=== PATIENT | male | born 1960 | race Caucasian/White ===

== ENCOUNTER 2020-01-20 22:54 | Observation (INO) | payer MEDICAID, SELFPAY ==
--- NOTE | ~2020-01-20 | XR_ITS ---
EXAMINATION: XR chest 1V portable 01/21/2020 00:01 INDICATION: Cough, shortness of breath and history of COPD PROCEDURE: AP portable chest COMPARISON: Comparison to multiple prior studies sequentially, with oldest reviewed study dated 01/10. FINDINGS: The lungs are clear. The cardiomediastinal silhouette is within normal limits. There are no pleural effusions. There is no pneumothorax suspected. The lungs are hyperinflated which is cons istent with, but not diagnostic of chronic obstructive pulmonary disease. IMPRESSION: 1: NO ACUTE CARDIOPULMONARY DISEASE. Reviewed, dictated and finalized at location A.
[2020-01-20 22:56] VITALS: BP 214/92; PULSE 112; RESP 23; TEMP 36.6; O2SAT 91
--- NOTE | 2020-01-20 23:00 | ECG_ITS ---
Measurements Intervals [place] Rate: 110 P: 84 AL: 150 QRS: 66 QRSD: 91 T: 66 QT: 328 QTc: 445 Interpretive Statements SINUS TACHYCARDIA VENTRICULAR PREMATURE COMPLEX INCOMPLETE RIGHT BUNDLE BRANCH BLOCK ABNORMAL ECG Electronically Signed On 01-21-2020 8:53:13 CDT by Shiv Cain D.O.
--- NOTE | 2020-01-20 23:05 | ED.SOB ---
HPI - SOB/Dyspnea General Chief Complaint: Shortness of Breath/Dyspnea Stated Complaint: SOB Time Seen by Provider: 01/20/20 23:00 Source: RN notes reviewed History of Present Illness HPI Narrative: Patient presents emergency department from home via EMS for shortness of breath. Patient states symptoms been ongoing for the past 5 days and worse over the past 3 days. States that is been associated with a cough is been productive of yellow phlegm. Patient states he has a history of COPD and currently smokes cigarettes. He denies any fevers or chills chest pain abdominal pain nausea vomiting or any other symptoms. Related Data Home Medications Medication Instructions Recorded Confirmed cyclobenzaprine 10 mg tablet 10 mg PO TID 07/28/19 ibuprofen 800 mg tablet 800 mg PO TID 07/28/19 omeprazole 40 mg capsule,delayed 40 mg PO DAILY 07/28/19 release umeclidinium 62.5 mcg-vilanterol 1 inhalation INHALATION DAILY 07/28/19 25 mcg/actuation powdr for inhalation Allergies Allergy/AdvReac Type Severity Reaction Status Date / Time No Known Allergies Allergy Unknown Verified 01/20/20 23:02 Review of Systems Review of Systems: Narrative: Gen.: Denies fevers or chills Eyes: Denies eye pain or visual change ENT: Denies congestion Respiratory: See HPI CV: Denies chest pain or palpitations GI: Denies abdominal pain nausea, emesis or diarrhea Musculoskeletal: Denies back pain or muscle pain Neuro: Denies numbness, tingling, weakness or focal weakness Skin: Denies rash Except as documented, all other systems reviewed and negative [facility], [facility] Past Medical History Medical History Alcohol abuse COPD (chronic obstructive pulmonary disease) Essential hypertension Social History Social History (Updated 01/20/20 @ 23:19 by Guanakito Hernandez DO) Gender identity (if verbalized by the patient): Male Exam Narrative: Exam Narrative: APPEARANCE: No acute distress, nontoxic, resting in bed EYES: EOMI HEENT: Normocephalic, atraumatic, OMM RESPIRATORY: Mild respiratory distress, wheezing throughout the bilateral lung gonzalez, no rhonchi or rales CARDIOVASCULAR: Regular rate and rhythm without murmurs rubs or gallops. ABDOMINAL: Soft, nontender, nondistended, no rebound or guarding MUSCULOSKELETAl: Moves all extremities. No clubbing, cyanosis or edema. NEURO: Awake and alert. Following commands, speech normal, no focal deficits SKIN:: Warm, dry. No rashes lesions or abrasions PSYCHIATRIC: Normal affect/mood, Course Course Emergency Course: Discussed with Dr. Palma presentation work-up. Agrees with admission at this time Discussed with patient and family results of workup and diagnosis. Discussed need for admission. Patient and family understand and agree to current treatment plan Vital Signs Vital signs: Vital Signs Temperature 97.9 F 01/20/20 22:56 Pulse Rate 112 H 01/20/20 22:56 Respiratory Rate 23 H 01/20/20 22:56 Blood Pressure 214/92 H 01/20/20 22:56 Pulse Oximetry 91 01/20/20 22:56 Temperature 97.9 F 01/20/20 22:56 Pulse Rate 107 H 01/21/20 00:06 Respiratory Rate 25 H 01/21/20 00:06 Blood Pressure 130/79 01/21/20 00:06 Pulse Oximetry 89 L 01/21/20 00:06 MDM - SOB/Dyspnea Lab Data Result diagrams: 01/20/20 23:27 01/20/20 23:27 Labs: Lab Results 01/20/20 01/20/20 01/20/20 Range/Units 23:27 23:27 23:27 WBC 9.0 (4.5-10.0) K/mm3 RBC 4.13 L (4.6-6.20) M/mm3 Hgb 13.7 L (14.0-18.0) g/dL Hct 40.2 L (42.0-52.0) % MCV 97.3 (80-100) fl MCH 33.2 (26-34) pg MCHC 34.1 (32-36) g/dl RDW 12.2 (11.5-14.5) % Plt Count 266 (150-375) k/mm3 MPV 9.0 (7.4-10.4) fl Immature Gran % (Auto) 0.2 (0-0.5) % Neut % (Auto) 56.6 (45.5-73.1) % Lymph % (Auto) 31.7 (18.3-44.2) % Stephens % (Auto) 6.0 (2.6-8.5) % Eos % (Auto) 5.2 H (0-4.4) % Baso % (
--- NOTE | 2020-01-20 23:07 | PC.NURSE ---
pt refusing to wear a mask at this time.
[2020-01-20 23:24] LABS: Alveolar/Arterial O2 Gradient 36.5 mmHg; Base Excess ABG -3.9 mEq/l (+/-2.0); Fractional Inspired Oxygen 21 %; HCO3 ABG 20.8 mEq/l (22.0-26.0); Oxygen Content ABG 18.1 %vol (16.0-22.0); Oxygen Saturation ABG 93.5 % (95.0-100.0); Oxyhemoglobin 89.3 % THb (90.0-100.0); PCO2 ABG 36.9 mmHg (35.0-45.0); PO2 FiO2 Ratio Arterial Blood 3.29 %; Total Hemoglobin 14.4 g/dL (12.0-18.0); pH ABG 7.369 (7.350-7.450)
[2020-01-20 23:26] LABS: Device ROOM AIR; Modified Allen's Test Pass; Site Drawn LEFT RADIAL
[2020-01-20] MEDS: ALBUTEROL SULFATE NEB 2.5 MG/0.5 ML INH 5 MG INHALATION (23:30)
[2020-01-20] MEDS: IPRATROPIUM BR 0.02% INH SOLN 0.5 MG/2.5 ML VIAL INHALATION (23:30)
[2020-01-20 23:34] LABS: Basophils Percent Auto 0.3 % (0.2-1.2); Eosinophils Absolute Auto 0.5 K/mm3 (0-0.3); Eosinophils Percent Auto 5.2 % (0-4.4); Hematocrit 40.2 % (42.0-52.0); Hemoglobin 13.7 g/dL (14.0-18.0); Immature Granulocyte Absolute 0.02 K/mm3 (0.00-0.031); Immature Granulocyte Percent A 0.2 % (0-0.5); Lymphocytes Absolute Auto 2.87 K/mm3 (0.9-3.2); Lymphocytes Percent Auto 31.7 % (18.3-44.2); Mean Corpuscular HGB Conc 34.1 g/dl (32-36); Mean Corpuscular Hemoglobin 33.2 pg (26-34); Mean Corpuscular Volume 97.3 fl (80-100); Monocytes Absolute Auto 0.5 K/mm3 (0.1-0.6); Neutrophils Absolute Auto 5.1 K/mm3 (1.3-6.7); Neutrophils Percent Auto 56.6 % (45.5-73.1); Platelet Count Result 266 k/mm3 (150-375); Red Blood Count 4.13 M/mm3 (4.6-6.20); Red Cell Distribution Width 12.2 % (11.5-14.5)
[2020-01-20] MEDS: THIAMINE HCL 200 MG/2 ML VIAL 100 MG IV PUSH (23:34)
[2020-01-20] MEDS: methylPREDNISolone SOD SUCC 125 MG VIAL IV PUSH (23:34)
[2020-01-20 23:36] VITALS: PULSE 105; RESP 24
[2020-01-20 23:42] VITALS: PULSE 107; RESP 18
[2020-01-20 23:44] LABS: INR 0.9; Partial Thromboplastin Time 26.8 SECONDS (22.3-36.8); Prothrombin Time 11.5 Seconds (11.1-14.7)
[2020-01-20 23:45] LABS: Lactic Acid Reflex 2.8 mmol/L (0.7-2.1)
[2020-01-20 23:46] LABS: Ethanol 38 mg/dL (<10)
[2020-01-20 23:47] LABS: Alanine Aminotransferase 20 U/L (4-50); Albumin Level 4.6 g/dL (3.5-5.1); Alkaline Phosphatase 73 U/L (38-126); Aspartate Amino Transferase 35 U/L (17-59); Bilirubin,Total 0.4 mg/dL (0.2-1.3); Blood Urea Nitrogen 8 mg/dL (9-20); Calcium 8.8 mg/dL (8.4-10.2); Carbon Dioxide 25 mmol/L (22-30); Chloride 98 mmol/L (98-107); Estimated CRCL calculation 114 ml/min; Estimated Glomerular Filt Rate > 60; Glucose 192 mg/dL (75-110); Potassium 3.8 mmol/L (3.4-5.0); Sodium 133 mmol/L (137-145)
[2020-01-20 23:59] LABS: NT Pro B Type Natriuretic Pept 26 PG/ML (5-100); Troponin I < 0.012 ng/mL (0.000-0.034)
[2020-01-21] VITALS (25 sets, daily range): BP systolic 102–151; BP diastolic 55–89; PULSE 84–131; RESP 16–94; TEMP 36.6–37.2; O2SAT 89–98; BMI 23.9
[2020-01-21] MEDS: SODIUM CHLORIDE 0.9% IV 1,000 ML 999 ML IV CONT (00:04)
--- NOTE | 2020-01-21 00:09 | PC.NURSE ---
pt placed on 2L of o2 at this time due to o2 sats in the high 80's
--- NOTE | 2020-01-21 02:18 | ADMGEN ---
This patient, Lewis An, was admitted to [facility] Surg Room 325-01 at 0210. Patient/family oriented to hospital policies and general routines including ID bracelet, bed and alarms, visiting hours, pain management, procedures, bathroom and other care routines, personal items, smoking policy, room service/diet, and visiting hours. Valuables list has been completed. Information on how to activate the Rapid Response Team has been discussed. Patient/Family are encouraged to report perceived risks to care and to ask questions if they do not understand what they are told or what they should do.
[2020-01-21 02:31] LABS: Reflex Lactic Acid Yes or No Add Lactic
[2020-01-21] MEDS: ALBUTEROL SULFATE NEB 2.5 MG/0.5 ML INH 5 MG INHALATION ×4 (02:47→21:22)
[2020-01-21] MEDS: IPRATROPIUM BR 0.02% INH SOLN 0.5 MG/2.5 ML VIAL INHALATION ×4 (02:48→21:21)
[2020-01-21 03:03] LABS: Lactic Acid 2.1 mmol/L (0.7-2.1)
[2020-01-21] MEDS: methylPREDNISolone SOD SUCC 125 MG VIAL 60 MG IV PUSH (07:37)
[2020-01-21 10:35] LABS: D Dimer 0.31 ug/mL (<0.48)
[2020-01-21 10:36] LABS: CRP 0.5 mg/dL (<1.0); Lactate Dehydrogenase 353 U/L (313-618)
[2020-01-21] MEDS: ASPIRIN 325 MG TABLET PO (10:44)
[2020-01-21] MEDS: FOLIC ACID 1 MG TABLET PO (10:44)
[2020-01-21] MEDS: THIAMINE HCL 100 MG TABLET PO (10:44)
[2020-01-21] MEDS: PANTOPRAZOLE SOD SESQUIHYDRATE 20 MG TAB PO (10:45)
[2020-01-21] MEDS: lisinopriL 20 MG TABLET PO (10:45)
[2020-01-21] MEDS: ENOXAPARIN 40 MG/0.4 ML SYRINGE SUB-Q (10:45)
--- NOTE | 2020-01-21 12:01 | PM.IMHP ---
H&P: HPI History of Present Illness Chief complaint: AE COPD Narrative: Lewis An is a 59 year old male who suffers from alcohol abuse who presented emergency room for shortness of breath. He says he has a baseline shortness of breath and has been diagnosed with emphysema but 3 days ago he said it gradually started getting worse. In the last year, he has had to sleep in the recliner because he gets thick secretions and the recliner helps. In the last week his secretions seem to be worsening and he is coughing up more phlegm. He said he could not sleep last night because it had gotten so bad so he came into the emergency room. He has not had any sick contacts and does not like to go anywhere so does not think he has got COVID-19. He admits to having some dyspnea on exertion but denies fevers, chills, leg swelling, or chest pain. He has never had a blood clot. He does have some reproducible muscular pain across his chest when he coughs but overall doing okay. He said he feels much better with the oxygen and steroids. He is very anxious and would love a cigarette. He also mentions that he drinks a little bit more than a 5th of vodka a day. He thinks he has had a alcohol withdrawal seizure in the past. He is adamant about not utilizing the seizure pads and understands the risk. He has not had any withdrawal symptoms such as tremors or hallucinations. He denies nausea, vomiting, diarrhea or constipation. Review of Systems Review of Systems: All systems reviewed & are unremarkable except as noted in HPI and below PMFSH Past Medical History Medical History (Updated 01/21/20 @ 12:09 by Mariel Zavala PA-C) Alcohol abuse COPD (chronic obstructive pulmonary disease) Essential hypertension Hypertension Surgical History Surgical History (Updated 01/21/20 @ 12:08 by Mariel Zavala PA-C) History of carpal tunnel surgery Family History Family History (Updated 01/21/20 @ 02:36 by Lyndsey Martin RN) Mother Brain aneurysm Sibling Hypertension Social History Social History (Updated 01/21/20 @ 12:09 by Mariel Zavala PA-C) Social History: Patient smokes 7 cigarettes a day but prior to that he smoked many packs a day. He drinks a little over 5th of vodka a day. He does not do drugs or marijuana. He would like to be a DNR. He states that he does not want a surrogate decision maker as he does not trust his or kids. Smoking status: Current every day smoker Tobacco type: cigarettes Second hand tobacco smoke exposure: Yes Alcohol intake: current Drinks per week: 100 Substance use: never Gender identity (if verbalized by the patient): Male Spiritual care concerns: No Meds Home Medications and Allergies Home Medications Medication Instructions Recorded Confirmed Type albuterol sulfate 90 mcg/actuation 1 puff INHALATION Q4H PRN #8 gm 07/28/19 01/21/20 Rx aerosol inhaler lisinopril 20 mg tablet 20 mg PO DAILY #90 tablet 07/28/19 01/21/20 Rx aspirin 325 mg PO DAILY 01/21/20 01/21/20 History naproxen sodium [Aleve] 220 mg PO Q12H 01/21/20 01/21/20 History Allergies Allergy/AdvReac Type Severity Reaction Status Date / Time No Known Allergies Allergy Unknown Verified 01/20/20 23:02 Vital Signs Vital Signs - 24 hr 01/20/20 22:56 01/20/20 23:36 01/20/20 23:42 Temperature 97.9 F Pulse Rate 112 H 105 H 107 H Pulse Rate [Right Radial Palpation] Respiratory Rate 23 H 24 H 18 Blood Pressure 214/92 H Pulse Oximetry 91 01/21/20 00:06 01/21/20 00:30 01/21/20 01:00 Temperature Pulse Rate 107 H 119 H 119 H Pulse Rate [Right Radial Palpation] Respiratory Rate 25 H 24 H 94 H Blood Pressure 130/79 144/79 H 142/89 H Pulse Oximetry 89 L 95 94 01/21/20 01:46 01/21/20 02:02 01/21/20 02:15 Temperature 98.9 F 98.1 F Pulse Rate 103 H 99 118 H Pulse Rate [Right Radial Palpation] Respiratory Rate 21 H 20 22 H Blood Pressure 105/55 L 102/67 151/81 H Pulse
[2020-01-21 12:44] LABS: Magnesium 1.9 mg/dL (1.6-2.3)
[2020-01-21] MEDS: CHLORDIAZEPOXIDE 25 MG CAPSULE PO ×2 (13:40→21:33)
[2020-01-21] MEDS: NICOTINE (*PBKC) 21 MG PATCH 1 PATCH TRANSDERM (13:40)
--- NOTE | 2020-01-21 14:47 | PC.NURSE ---
Patient refused seizure precaution padding. Patient was educated by both the nurse and attending provider on the risk of having seizures.
[2020-01-21] MEDS: methylPREDNISolone SOD SUCC 40 MG VIAL IV PUSH (21:33)
[2020-01-22] VITALS (8 sets, daily range): BP systolic 115–121; BP diastolic 66–74; PULSE 90–126; RESP 18–20; TEMP 36.2; O2SAT 92–96
[2020-01-22] MEDS: ALBUTEROL SULFATE NEB 2.5 MG/0.5 ML INH 5 MG INHALATION ×2 (03:14→09:03)
[2020-01-22] MEDS: IPRATROPIUM BR 0.02% INH SOLN 0.5 MG/2.5 ML VIAL INHALATION ×2 (03:14→09:02)
[2020-01-22 06:20] LABS: Basophils Percent Auto 0.1 % (0.2-1.2); Hematocrit 37.8 % (42.0-52.0); Hemoglobin 12.9 g/dL (14.0-18.0); Immature Granulocyte Absolute 0.09 K/mm3 (0.00-0.031); Immature Granulocyte Percent A 0.7 % (0-0.5); Lymphocytes Absolute Auto 1.22 K/mm3 (0.9-3.2); Lymphocytes Percent Auto 9.3 % (18.3-44.2); Mean Corpuscular HGB Conc 34.1 g/dl (32-36); Mean Corpuscular Hemoglobin 33.2 pg (26-34); Mean Corpuscular Volume 97.4 fl (80-100); Mean Platelet Volume 9.3 fl (7.4-10.4); Monocytes Absolute Auto 0.8 K/mm3 (0.1-0.6); Neutrophils Percent Auto 83.9 % (45.5-73.1); Platelet Count Result 274 k/mm3 (150-375); Red Blood Count 3.88 M/mm3 (4.6-6.20); Red Cell Distribution Width 12.5 % (11.5-14.5); White Blood Count 13.1 K/mm3 (4.5-10.0)
[2020-01-22 06:33] LABS: Hemoglobin A1C 5.2 % (<5.7)
[2020-01-22 06:48] LABS: Blood Urea Nitrogen 11 mg/dL (9-20); Calcium 8.7 mg/dL (8.4-10.2); Carbon Dioxide 26 mmol/L (22-30); Chloride 103 mmol/L (98-107); Estimated CRCL calculation 134 ml/min; Estimated Glomerular Filt Rate > 60; Glucose 144 mg/dL (75-110); Potassium 4.7 mmol/L (3.4-5.0); Sodium 135 mmol/L (137-145)
[2020-01-22 07:50] LABS: Folic Acid 6.7 ng/mL (2.76->20)
[2020-01-22] MEDS: ASPIRIN 325 MG TABLET PO (08:33)
[2020-01-22] MEDS: lisinopriL 20 MG TABLET PO (08:33)
[2020-01-22] MEDS: ENOXAPARIN 40 MG/0.4 ML SYRINGE SUB-Q (08:33)
[2020-01-22] MEDS: THIAMINE HCL 100 MG TABLET PO (08:33)
[2020-01-22] MEDS: FOLIC ACID 1 MG TABLET PO (08:33)
[2020-01-22] MEDS: PANTOPRAZOLE SOD SESQUIHYDRATE 20 MG TAB PO (08:34)
[2020-01-22] MEDS: methylPREDNISolone SOD SUCC 40 MG VIAL IV PUSH (08:34)
[2020-01-22] MEDS: NICOTINE (*PBKC) 21 MG PATCH 1 PATCH TRANSDERM (08:34)
--- NOTE | 2020-01-22 10:09 | PM.DS ---
DS: Admitting Diagnosis Admitting Diagnosis Admitting Diagnosis: Chronic obstructive pulmonary disease with (acute) exacerbation DS: Discharge Diagnosis Discharge Diagnosis (1) Acute exacerbation of chronic obstructive airways disease: Code(s): J44.1 - Chronic obstructive pulmonary disease with (acute) exacerbation Status: Acute Assessment and Plan: -----the patient is currently undergoing a COPD exacerbation and has felt improvement with the steroids and has been weaned off o2. Chest x-ray does not show any infection nor does he have a leukocytosis or fever. COVID-19 seems less likely as the D-dimer, ferritin, LDH and CRP is normal. Plan to wean steroids outpt. PE seems less likely since d-dimer negative and wells score 1.5. Tachycardia likely d/t ETOH withdraw It was explained that he needs to quit smoking in order to stop the progression of COPD which he states is not going to happen . (2) Acute respiratory failure with hypoxia: Code(s): J96.01 - Acute respiratory failure with hypoxia Status: Acute Assessment and Plan: -----as stated above. Pt off o2 at discharge. (3) Hypertension: Code(s): I10 - Essential (primary) hypertension Status: Acute Assessment and Plan: -----last blood pressure 115/74. Continue lisinopril. (4) Hyperglycemia: Code(s): R73.9 - Hyperglycemia, unspecified Status: Acute Assessment and Plan: -----glucose elevated this morning without the diagnosis of diabetes. A1c normal. (5) Alcohol abuse: Code(s): F10.10 - Alcohol abuse, uncomplicated Status: Acute Assessment and Plan: -----the patient drinks quite a bit of alcohol daily and his last drink was the day prior to admission. He has also had a seizure in the past. Pt was discharged on the medications below and instructed to wean off alcohol. Pt had no plans to quit drinking alcohol. (6) Tobacco abuse counseling: Code(s): Z71.6 - Tobacco abuse counseling Status: Acute Assessment and Plan: -----we have discussed chantix, Wellbutrin, nicotine patches, and gum. He says none of these work and he is going to continue to smoke. He understands the risk associated with this which include . DS: Summary Hospital Course Reason for hospitalization: COPD exacerbation Hospital Course: Patient is a 59-year-old male who presented emergency room for shortness of breath found to have COPD exacerbation. Chest x-ray was negative. Patient was started on IV steroids and had improvement through the night. He was able to be weaned off oxygen. PE was less likely as stated above. Patient was back to his baseline at discharge. Please see above Status at Discharge Functional status at discharge: independent ambulation Overall status at discharge: patient is back to baseline Time Spent with Patient Time attestation: Total time spent providing and/or coordinating discharge services: 34 min Time spent: Greater than 30 minutes Exam Narrative: Exam Narrative: General:Well developed well nourished patient resting comfortably in bed in no acute distress HEENT: Normocephalic, atraumatic, PERRL, Sclerae anicteric, oral mucosa moist. Neck: Supple Resp: Decreased breath sounds, no wheezing or rhonchi. Heart: Tachycardic 115 on exam. No murmurs Abd: Soft, nontender. No pain to palpation. Positive bowel sounds Skin: Warm and dry Extremities: No swelling, erythema or pain to palpation Neuro: Alert and Oriented x4 . No tremor. CN 2-12 intact. No focal neurological deficits. DS: Data Data Completed and Pending Labs on day of discharge: Labs from last 24 hours 01/22/20 01/22/20 01/22/20 06:04 06:04 06:04 WBC 13.1 H RBC 3.88 L Hgb 12.9 L Hct 37.8 L MCV 97.4 MCH 33.2 MCHC 34.1 RDW 12.5 Plt Count 274 MPV 9.3 Immature Gran % (Auto) 0.7 H Neut % (Auto) 83.9 H Lymph % (Auto)
== END 2020-01-22 11:10 | disposition home or self-care (01) ==
LOC: ANHED 01-21 00:57 → ANH3MEDSUR 01-21 01:33
PROVIDERS: Physician Assistant; Admitting Provider Internal Medicine; Emergency Provider Emergency Medicine; PCP Family Medicine; Visit Provider Internal Medicine
DX: J44.1 Chronic obstructive pulmonary disease with (acute) exacerbation (principal); J96.01 Acute respiratory failure with hypoxia; I10 Essential (primary) hypertension; R73.9 Hyperglycemia, unspecified; F10.10 Alcohol abuse, uncomplicated; F17.210 Nicotine dependence, cigarettes, uncomplicated; R07.89 Other chest pain
CPT/HCPCS: 36415; 36600; 71045; 80048; 80053; 80307; 82607; 82728; 82746; 82805; 83036; 83605; 83615; 83735; 83880; 84484; 85025; 85380; 85610; 85730; 86140; 87040; 93005; 94640; 96361; 96372; 96374; 96375; 96376; 99285; A9270; G0378; G0379; J1650; J2920; J2930; J3411; J7030